=== PATIENT | female | born 1995 | race Caucasian/White ===

== ENCOUNTER 2017-04-13 12:39 | Emergency (ER) | payer MEDICAID, OTHER ==
[2017-04-13 13:07] LABS: BASOPHILS 0.2 % (0.0-2.0); EOSINOPHILS 0.7 % (0.0-6.0); EOSINOPHILS# 0.1 X 10^3uL (0.0-0.4); HEMATOCRIT 45.5 % (36.0-48.0); HEMOGLOBIN 15.9 g/dL (12.0-16.0); LYMPHOCYTES 25.1 % (20.0-40.0); LYMPHOCYTES# 1.9 X 10^3uL (0.8-3.8); MEAN CELL VOLUME 82.4 fL (80.0-100.0); MEAN CORPUS. HGB CONCENTRATION 34.9 g/dL (32.0-36.0); MEAN CORPUSCULAR HEMOGLOBIN 28.7 pg (29.0-35.0); MONOCYTES 7.8 % (2.0-10.0); MONOCYTES# 0.6 X 10^3uL (0.2-1.0); NEUTROPHILS 66.2 % (54.0-75.0); NEUTROPHILS# 4.9 X 10^3uL (2.6-6.7); PLATELET COUNT 189 X 10^3uL (130-440); RED BLOOD COUNT 5.52 X 10^6uL (4.20-6.10); RED CELL DISTRIBUTION WIDTH 12.1 % (11.5-14.5); WHITE BLOOD COUNT 7.5 X 10^3uL (3.9-10.7)
[2017-04-13 13:22] LABS: BLOOD UREA NITROGEN 13 mg/dL (7-17); CALCIUM 9.6 mg/dL (8.4-10.2); CHLORIDE 103 mmol/L (98-107); EST GLOMERULAR FILTRATION RATE > 60 mL/min; GLUCOSE 91 mg/dL (70-100); POTASSIUM 3.9 mmol/L (3.5-5.1); SODIUM 140 mmol/L (137-145)
--- NOTE | 2017-04-13 14:23 | ER PHYSICIAN DOCUMENTATION ---
Physician Documentation [facility] Name:Enedelia Clarke Age:21 yrs Sex:Female :1995 Arrival Date:04/13/2017 Time:12:39 BedTrauma-C Private MD: Josh Elias Disposition: 04/13 14:00 Critical Care: not applicable. tl1 04/14 21:43 Chart complete. tl1 Disposition: 04/13/17 14:18 Discharged to Home/Self Care. Impression: Chest Wall Pain. - Condition is Good. - Discharge Instructions: CHEST WALL PAIN, Costochondritis. - Medical Reconciliation form form. - Follow up: Jennifer Casillas MD; When: 10 - 14 days; Reason: Recheck today's complaints, Continuance of care. - Problem is new. - Symptoms have improved. - Notes: Ibuprofen or aleve for pain. HPI: 04/13 12:53 This 21 yrs old Female presents to ER with complaints of Breathing Difficulty tl1 and chest pain. 12:55 She was well until yesterday when she had the abrupt onset of a substernal sharp chest tl1 pain that persists. This is worse with a deep breath. She has had some intermittent dyspnea and anxiety. no dizziness. No RF for DVT or PE. No cardiac RF. No illicit drug use or diet pills. No hemoptysis. No f/c/s. No wheezing. This pain has persisted today and was concerning enough that she felt like she needed to get checked out. She denied any recent viral type symptoms.. Historical: - Allergies: No known drug Allergies; - Home Meds: 1. None - PMHx: None; - PSHx: None; - Tetanus: < 10 years. - Ebola Screening: : Patient negative for fever greater than or equal to 101.5 degrees Fahrenheit, and additional compatible Ebola Virus Disease symptoms. - Immunization history: Pneumococcal vaccine status is unknown, Flu Vaccine None Flu Vaccine None. - Social history: Smoking status: Patient states was never smoker of tobacco. ROS: 12:55 Respiratory: Positive for cough, pleurisy, shortness of breath, Negative for tl1 hemoptysis, orthopnea, sputum production, wheezing. 12:55 All other systems are negative. Exam: 12:55 Constitutional: This is a well developed, well nourished patient who is awake, alert, tl1 and in no acute distress. Head/Face: Normocephalic, atraumatic. ENT: Nares patent. No nasal discharge, no septal abnormalities noted. Tympanic membranes are normal and external auditory canals are clear. Oropharynx with no redness, swelling, or masses, exudates, or evidence of obstruction, uvula midline. Mucous membranes moist. 12:55 Neck: Trachea midline, no thyromegaly or masses palpated, and no cervical tl1 lymphadenopathy. Supple, full range of motion without nuchal rigidity, or vertebral point tenderness. No Meningismus. 12:55 Cardiovascular: Rate: normal, Rhythm: regular, Heart sounds: normal, Edema: is not appreciated, JVD: is not appreciated. 12:55 Respiratory: Respirations: normal, Breath sounds: are normal, no rales, rhonchi, no stridor. 12:55 Abdomen/GI: Inspection: abdomen appears normal, Palpation: abdomen is soft and non-tender. 12:55 Musculoskeletal/extremity: Exam is negative for acute changes, swelling, tenderness. 12:55 Neuro: Exam negative for acute changes. 12:55 Chest/axilla: Palpation: tenderness, that is moderate, of the xyphoid area and tl1 mid-sternal area. Vital Signs: 12:40 BP 130 / 75; Pulse 99; Resp 17; Temp 98.1(O); Pulse Ox 95% on R/A; Weight 68.04 kg; rh Height 5 ft. 6 in. (167.64 cm); Pain 5/10; 13:29 BP 109 / 63; Pulse 88; Resp 18; Pulse Ox 94% on R/A; Pain 4/10; rh 14:00 BP 111 / 67; Pulse 87; Resp 17; Pulse Ox 95% on R/A; Pain 2/10; rh 12:40 Body Mass Index 24.21 (68.04 kg, 167.64 cm) rh MDM: 12:53 Patient medically screened. tl1 12:55 ED course: I told her this is almost certainly chest wall related pain, probably tl1 costochondritis. She does not have a h/o heartburn and this is unlikely to be esophageal. She has no risk factors for CAD, and her ECG and her CXR is normal.. 14:00 Differential diagnosis: pneumonia, Pneumothorax Pulmonary Embolism costochondritis. tl1 Antibiotic administration: Not indicated. The patient's pulmonary embolism risk score was calculated as follows: No Risks (0 Pts). Data reviewed: vital signs, nurses notes, lab test result(s), CBC, electrolytes, hepatic panel, urinalysis, EKG, radiologic studies, plain films, and as a result, I will discharge patient. 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 Counseling: I had a detailed discussion with the patient and/or guardian regarding: the historical points, exam findings, and any diagnostic results supporting the discharge/admit diagnosis, lab results, radiology results, the need for outpatient follow up, with the patient's primary care provider, to return to the emergency department if symptoms worsen or persist or if there are any questions or concerns that arise at home. 14:20 EKG attached 04/13 13:23 Order name: BASIC METABOLIC PANEL; Complete Time: 13:57 [facility] 04/13 13:56 Interpretation: Normal: SODIUM 140; POTASSIUM 3.9; CHLORIDE 103; CARBON DIOXIDE 25; tl1 GLUCOSE 91; BLOOD UREA NITROGEN 13; CREATININE 0.9; CALCIUM 9.6. 04/13 13:25 Order name: DDIMER; Complete Time: 13:57 [facility] 04/13 13:56 Interpretation: Normal: DDIMER < 200. [facility] 04/13 13:27 Order name: CBC AUTO DIF, MDIF/RMOR IF IND; Complete Time: 13:57 [facility] 04/13 13:56 Interpretation: Normal: WHITE BLOOD COUNT 7.5; HEMOGLOBIN 15.9; HEMATOCRIT 45.5; tl1 PLATELET COUNT 189. 04/13 13:30 Order name: HCG, SERUM; Complete Time: 13:57 [facility] 04/13 13:56 Interpretation: Normal: HCG, SERUM NEGATIVE. [facility] 04/14 07:10 Order name: CXR 2V [id number] [facility] 04/13 12:55 Order name: EKG - 12 Lead; Complete Time: 12:56 [facility] 04/13 12:57 Order name: Iv Saline Lock; Complete Time: 12:57 04/13 12:57 Order name: Cardiac Monitoring - Continuous; Complete Time: 12:57 Dispensed Medications: No medications were administered Point of Care Testing: Urine Dip: 13:52 pH: 6.0; ; Specific [place]: 1.025; Ketones: Moderate; Glucose: Negative; Protein: rh Negative; Leukocytes: Negative; Nitrite: Negative ; Blood: Non Hemolyzed Trace; Bilirubin: Negative ; Urobilinogen: Normal Signatures: Josh Schreiber MD MD tl1 Enedelia Apple
--- NOTE | 2017-04-13 14:23 | ER NURSING DOCUMENTATION ---
Nurse's Notes [facility] Name:Enedelia Clarke Age:21 yrs Sex:Female :1995 Arrival Date:04/13/2017 Time:12:39 BedTrauma-C Private MD: Diagnosis:Chest Wall Pain Presentation: 04/13 12:53 Acuity: LESLIE 2 lp 12:55 Presenting complaint: Patient states: Pt was at working yesterday and had a quick onset rh of anterior substernal chest pain. Pt states it has been continuous since yesterday and hurts more when she takes a deep breath. Pt c/o shortness of breath on occasion as well and some lightheadedness. Pt denies nausea and cough. Transition of care: Home. 12:55 Method Of Arrival: Private Vehicle rh Triage Assessment: 12:57 General: Appears in no apparent distress, Behavior is cooperative. Pain: Complains of rh pain in mid-sternal area. EENT: Oral mucosa is dry. Neuro: Level of Consciousness is awake, alert, obeys commands. Cardiovascular: Capillary refill < 3 seconds Reports lightheadedness, Denies palpitations, Rhythm is sinus rhythm Chest pain is described as vague, quality is stabbing, is located in anterior chest wall substernal area. Respiratory: Airway is patent Respiratory effort is even, unlabored, Respiratory pattern is regular, symmetrical, Reports shortness of breath pain with respiration Onset: The symptoms/episode began/occurred yesterday, the patient has mild shortness of breath. GI: Abdomen is non- distended Denies nausea. : No deficits noted. Derm: Skin is intact, is healthy with good turgor, Skin is pink, warm & dry. Musculoskeletal: Circulation, motion, and sensation intact Range of motion intact in all extremities. Historical: - Allergies: No known drug Allergies; - Home Meds: 1. None - PMHx: None; - PSHx: None; - Tetanus: < 10 years. - Ebola Screening: : Patient negative for fever greater than or equal to 101.5 degrees Fahrenheit, and additional compatible Ebola Virus Disease symptoms. - Immunization history: Pneumococcal vaccine status is unknown, Flu Vaccine None Flu Vaccine None. - Social history: Smoking status: Patient states was never smoker of tobacco. Screenin:00 Infectious Disease Risk None. Abuse screen: Denies threats or abuse. Denies injuries rh from another. Nutritional screening: No deficits noted. Assessment: 13:00 See Triage Assessment done by same RN. Vital Signs: 12:40 BP 130 / 75; Pulse 99; Resp 17; Temp 98.1(O); Pulse Ox 95% on R/A; Weight 68.04 kg; rh Height 5 ft. 6 in. (167.64 cm); Pain 5/10; 13:29 BP 109 / 63; Pulse 88; Resp 18; Pulse Ox 94% on R/A; Pain 4/10; rh 14:00 BP 111 / 67; Pulse 87; Resp 17; Pulse Ox 95% on R/A; Pain 2/10; rh 12:40 Body Mass Index 24.21 (68.04 kg, 167.64 cm) rh ED Course: 12:39 Inserted peripheral IV: 20 gauge in left antecubital area and blood collected. rh 12:40 rug cleaner on. Pulse ox on. NIBP on. rh 12:45 Valuables Remains with patient Patient has correct armband on for positive rh identification. Placed in gown. Bed in low position. Call light in reach. Side rails up X 1. 12:45 Notified ED Physician of patient's arrival and chief complaint. Dr. Schreiber notified. rh 12:49 Patient arrived in ED. jl 12:49 EKG done. (by ED staff). Reviewed by Josh Schreiber MD. rh 12:52 Josh Schreiber MD is Attending Physician. tl1 12:53 Triage completed. lp 12:53 Enedelia Apple is Primary Nurse. rh 14:17 Jennifer Casillas MD is Referral Physician. tl1 14:20 EKG attached rh Administered Medications: No medications were administered Point of Care Testing: Urine Dip: 13:52 pH: 6.0; ; Specific [place]: 1.025; Ketones: Moderate; Glucose: Negative; Protein: rh Negative; Leukocytes: Negative; Nitrite: Negative ; Blood: Non Hemolyzed Trace; Bilirubin: Negative ; Urobilinogen: Normal Outcome: 13:58 IV D/Brian rh 14:00 Discharged to home ambulatory. rh 14:00 Condition: improved 14:00 Discharge Assessment: Patient awake, alert and oriented x 3. No cognitive and/or functional deficits noted. Patient verbalized understanding of disposition instructions. 14:00 Discharge instructions given to patient, Instructed on discharge instructions, follow up and referral plans. Demonstrated understanding of instructions. 14:18 Discharge ordered by tl1 14:22 Patient left the ED. 04/14 08:33 Discharge F/U Call: Spoke with: patient. Signatures: Gerda Bruno, RN Josh Barnes lp, MD MD tl1 Enedelia Apple Connor Cabrera
--- NOTE | 2017-04-13 20:21 | RADIOLOGY REPORT ---
Two views of the chest demonstrate the heart, vessels and lungs to be unremarkable. IMPRESSION: Unremarkable two views of the chest. MTDD
== END 2017-04-13 14:23 | disposition home or self-care (01) ==
LOC: ER 12:39
DX: R07.81 Pleurodynia (principal); R09.1 Pleurisy; R05 Cough; R06.02 Shortness of breath
CPT/HCPCS: 71020; 80048; 84703; 85025; 85379; 93005; 99284